=== PATIENT | male | born 2000 ===

== ENCOUNTER 2024-03-17 11:21 | Emergency (ER) | payer OTHER ==
[~2024-03-17] VITALS: Ht 180.3 cm; Wt 69.4 kg
[2024-03-17 12:21] VITALS: BP 143/90
== END 2024-03-17 12:21 | disposition other institution, planned readmission (95) ==
LOC: ED 11:21
DX: Z02.89 Encounter for other administrative examinations (principal); V89.2XXA Person injured in unspecified motor-vehicle accident, traffic, initial encounter
CPT/HCPCS: 99283